=== PATIENT | male | born 1960 | race Caucasian/White ===

== ENCOUNTER 2023-10-23 02:04 | Emergency (ER) | payer MEDICARE ==
[~2023-10-23] VITALS: Ht 193 cm; Wt 97.5 kg
[2023-10-23] MEDS ORDERED: DIVA-78 PO (02:41)
[2023-10-23] MEDS ORDERED: ACETAMINOPHEN ES 500 MG TABLET ONE (02:41)
[2023-10-23] MEDS ORDERED: ALBU8.5H8 IH (02:41)
[2023-10-23] MEDS ORDERED: NAPR-1164 PO (02:41)
[2023-10-23] MEDS ORDERED: OXYMETAZOLINE NASAL 0.05% 15 ML SPRAY NS ONE (02:42)
[2023-10-23] MEDS ORDERED: HYDROCODONE/APAP 5-325MG TABLET ONE (02:42)
[2023-10-23] MEDS ORDERED: DIVALPROEX 500 MG TABLET.DR PO ONE (02:46)
[2023-10-23] MEDS: DIVALPROEX 500 MG TABLET.DR PO ONE (02:52)
[2023-10-23] MEDS: HYDROCODONE/APAP 5-325MG TABLET PO ONE (02:52)
[2023-10-23] MEDS: OXYMETAZOLINE NASAL 0.05% 15 ML SPRAY NS ONE (02:52)
[2023-10-23] MEDS: ACETAMINOPHEN ES 500 MG TABLET PO ONE (02:52)
[2023-10-23 05:29] VITALS: O2SAT 96
== END 2023-10-23 10:35 | disposition home or self-care (01) ==
LOC: ER 02:15
DX: S09.8XXA Other specified injuries of head, initial encounter (principal); J44.9 Chronic obstructive pulmonary disease, unspecified; F17.210 Nicotine dependence, cigarettes, uncomplicated; F31.9 Bipolar disorder, unspecified; Z79.899 Other long term (current) drug therapy; Z60.2 Problems related to living alone; Y08.89XA Assault by other specified means, initial encounter; Y93.89 Activity, other specified; Y92.89 Other specified places as the place of occurrence of the external cause; Y99.8 Other external cause status
CPT/HCPCS: 70450; A4606; A4663; A9150

== ENCOUNTER 2023-11-13 23:05 | Emergency (ER) | payer MEDICARE ==
[~2023-11-13] VITALS: Ht 193 cm; Wt 70.3 kg
[~2023-11-13 23:05] MED LIST: ALBU8.5H8 IH; DIVA-78 PO; NAPR-1164 PO
[2023-11-13] MEDS: IV NORMAL SALINE 1000 ML BAG IV ONE (23:30)
[2023-11-13 23:41] LABS: BASOPHILS # (AUTO) 0.1 K/UL (0.0-0.2); BASOPHILS % (AUTO) 1.5 % (0.0-2.0); EOSINOPHILS # (AUTO) 0.1 K/uL (0.0-0.7); EOSINOPHILS % (AUTO) 0.8 % (0.0-7.0); HEMATOCRIT 33.7 % (36.7-47.1); HEMOGLOBIN 11.1 g/dL (12.5-16.3); LYMPHOCYTES % (AUTO) 22.9 % (20.5-51.5); MEAN CORPUSCULAR HEMOGLOBIN 29.2 uug (23.8-33.4); MEAN CORPUSCULAR HGB CONC 33 g/dL (32.5-36.3); MEAN CORPUSCULAR VOLUME 88.5 fL (73.0-96.2); MONOCYTES # (AUTO) 0.6 K/uL (0.1-1.30); MONOCYTES % (AUTO) 6.6 % (0.0-11.0); NEUTROPHILS # (AUTO) 5.8 K/uL (1.8-8.9); NEUTROPHILS % (AUTO) 68.2 % (38.5-71.5); PLATELET COUNT (AUTO) 365 K/uL (152-348); RED BLOOD CELL COUNT(AUTO) 3.81 MIL/uL (4.06-5.63); RED CELL DISTRIBUTION WIDTH 14.2 % (12.1-16.2); WHITE BLOOD COUNT (AUTO) 8.6 K/uL (3.6-10.2)
[2023-11-13 23:47] LABS: DIFFERENTIAL COMMENT 1
[2023-11-13 23:51] LABS: CALCIUM 8.9 mg/dL (8.5-10.1); CARBON DIOXIDE 26 mmol/L (21-32); CHLORIDE 105 mmol/L (98-107); CREATININE 0.9 mg/dL (0.6-1.3); GLUCOSE 111 mg/dL (74-106); POTASSIUM 3.6 mmol/L (3.5-5.1); SODIUM SERUM 143 mmol/L (136-145); UREA NITROGEN, BLOOD 16 mg/dL (7-18)
[2023-11-13 23:52] LABS: AMMONIA < 10 umol/L (11-32)
[2023-11-13 23:57] LABS: ALANINE AMINOTRANSFERASE 20 U/L (16-63); ALBUMIN 3.4 g/dL (3.4-5.0); ALKALINE PHOSPHATASE 86 U/L (50-136); ASPARTATE AMINOTRANSFERASE 11 U/L (15-37); BILIRUBIN,DIRECT 0.1 mg/dL (0.0-0.2); BILIRUBIN,TOTAL 0.3 mg/dL (0.2-1.0); LIPASE 28 U/L (16-77); TOTAL PROTEIN, SERUM 7.4 g/dL (6.4-8.2)
[2023-11-14] MEDS: IV LACTATED RINGERS SOLUTION 1,000 ML IV ONE (01:48)
[2023-11-14] MEDS ORDERED: LOPE2CAP40 PO (05:48)
[2023-11-14] MEDS ORDERED: DICY10CA13 PO (05:52)
[2023-11-14 06:55] VITALS: BP 123/69; TEMP 98.8; O2SAT 99
== END 2023-11-14 06:56 | disposition home or self-care (01) ==
LOC: ER 23:06
DX: E86.0 Dehydration (principal); R19.7 Diarrhea, unspecified; J44.9 Chronic obstructive pulmonary disease, unspecified; F31.9 Bipolar disorder, unspecified; F17.200 Nicotine dependence, unspecified, uncomplicated; Z79.51 Long term (current) use of inhaled steroids; Z60.2 Problems related to living alone
CPT/HCPCS: 99284; 96360; 80076; 80048; 82140; 83690; 85025; 85730; 36415; 74176; 96361; J7120; J7040; A4606; A4663

== ENCOUNTER 2024-04-03 00:29 | Emergency (ER) | payer MEDICARE ==
[~2024-04-03] VITALS: Ht 193 cm; Wt 79.4 kg
[~2024-04-03 00:29] MED LIST changes: +DICY10CA13 PO; +LOPE2CAP40 PO
[2024-04-03] MEDS ORDERED: ALBUTEROL SULFATE 2.5 MG/3 ML NEBU ONE (00:52)
[2024-04-03] MEDS ORDERED: IPRATROPIUM BROMIDE 0.5 MG/2.5 ML NEBU ONE (00:52)
[2024-04-03] MEDS ORDERED: CEFTRIAXONE 1 G VIAL ONE (00:53)
[2024-04-03] MEDS ORDERED: SULFAMETH/TRIMETH 800/160 MG TABLET ONE (00:54)
[2024-04-03] MEDS ORDERED: HYDROCODONE/APAP 10-325 MG TABLET ONE (00:54)
[2024-04-03] MEDS ORDERED: LIDOCAINE HCL 1% 20 ML VIAL ONE (00:54)
[2024-04-03] MEDS ORDERED: SULF1TAB48 PO (00:55)
[2024-04-03] MEDS ORDERED: HYDR-3980 PO (00:55)
[2024-04-03] MEDS ORDERED: DIVA-76 PO (00:55)
[2024-04-03] MEDS: ALBUTEROL SULFATE 2.5 MG/3 ML NEBU NEB ONE (00:58)
[2024-04-03] MEDS: IPRATROPIUM BROMIDE 0.5 MG/2.5 ML NEBU NEB ONE (00:58)
[2024-04-03] MEDS: CEFTRIAXONE 1 G VIAL IM ONE (00:59)
[2024-04-03] MEDS: HYDROCODONE/APAP 10-325 MG TABLET PO ONE (01:00)
[2024-04-03] MEDS: SULFAMETH/TRIMETH 800/160 MG TABLET PO ONE (01:00)
[2024-04-03 01:10] VITALS: O2SAT 98; O2SAT 99
[2024-04-03] MEDS ORDERED: DIVALPROEX 250 MG TABLET.DR PO ONE (01:33)
[2024-04-03] MEDS: VALPROIC ACID 250 MG CAPSULE PO SCH (01:40)
[2024-04-03 04:01] LABS: BASOPHILS % (AUTO) 0.6 % (0.0-2.0); EOSINOPHILS # (AUTO) 0.1 K/uL (0.0-0.7); EOSINOPHILS % (AUTO) 1.9 % (0.0-7.0); HEMATOCRIT 36.7 % (36.7-47.1); HEMOGLOBIN 12.3 g/dL (12.5-16.3); LYMPHOCYTES # (AUTO) 1.8 K/uL (0.8-4.8); LYMPHOCYTES % (AUTO) 25.3 % (20.5-51.5); MEAN CORPUSCULAR HEMOGLOBIN 27.8 uug (23.8-33.4); MEAN CORPUSCULAR HGB CONC 33 g/dL (32.5-36.3); MEAN CORPUSCULAR VOLUME 83.2 fL (73.0-96.2); MONOCYTES # (AUTO) 0.5 K/uL (0.1-1.30); NEUTROPHILS # (AUTO) 4.7 K/uL (1.8-8.9); NEUTROPHILS % (AUTO) 65.2 % (38.5-71.5); PLATELET COUNT (AUTO) 290 K/uL (152-348); RED BLOOD CELL COUNT(AUTO) 4.42 MIL/uL (4.06-5.63); RED CELL DISTRIBUTION WIDTH 15.2 % (12.1-16.2); WHITE BLOOD COUNT (AUTO) 7.2 K/uL (3.6-10.2)
[2024-04-03] MEDS ORDERED: VANCOMYCIN IV 200 ML ONE (04:04)
[2024-04-03] MEDS: VANCOMYCIN IV 1,000 MG in IV DEXTROSE 5% 250 ML IV ONE (04:05)
[2024-04-03 05:01] LABS: ALBUMIN 3.6 g/dL (3.4-5.0); BILIRUBIN,TOTAL 0.2 mg/dL (0.2-1.0); CALCIUM 9.1 mg/dL (8.5-10.1); CREATININE 0.9 mg/dL (0.6-1.3); POTASSIUM 3.7 mmol/L (3.5-5.1); TOTAL PROTEIN, SERUM 7.9 g/dL (6.4-8.2)
[2024-04-03] MEDS ORDERED: IOHEXOL 300MG/ML 100 ML INFUS..BTL ONE (05:18)
[2024-04-03] MEDS ORDERED: SWABABLE VALVE TRANSFER SET EA MC ONE (05:20)
[2024-04-03 09:26] VITALS: BP 119/76; TEMP 98; O2SAT 97
== END 2024-04-03 09:27 | disposition home or self-care (01) ==
LOC: ER 00:37
DX: L03.031 Cellulitis of right toe (principal); J44.9 Chronic obstructive pulmonary disease, unspecified; F31.9 Bipolar disorder, unspecified; F17.210 Nicotine dependence, cigarettes, uncomplicated; F12.90 Cannabis use, unspecified, uncomplicated; Z79.899 Other long term (current) drug therapy; Z59.00 Homelessness unspecified; W01.0XXA Fall on same level from slipping, tripping and stumbling without subsequent striking against object, initial encounter; Y93.89 Activity, other specified; Y92.89 Other specified places as the place of occurrence of the external cause; Y99.8 Other external cause status
CPT/HCPCS: 99285; 96365; 73701; 96366; 99406; 80053; 85025; 85610; 87040 ×2; 36415; 73502; 73630; 94640; 96372; 72170; J0696; J3490; Q9967; J3370; A4606; A4663; J3590

== ENCOUNTER 2024-04-19 13:44 | Inpatient (IN) | payer MEDICARE ==
[~2024-04-19] VITALS: Ht 193 cm; Wt 78.9 kg
[~2024-04-19 13:44] MED LIST changes: +DIVA-76 PO; +HYDR-3980 PO; +SULF1TAB48 PO
[2024-04-19 14:46] LABS: BASOPHILS # (AUTO) 0.1 K/UL (0.0-0.2); BASOPHILS % (AUTO) 0.8 % (0.0-2.0); EOSINOPHILS # (AUTO) 0.2 K/uL (0.0-0.7); EOSINOPHILS % (AUTO) 3.4 % (0.0-7.0); HEMATOCRIT 32.3 % (36.7-47.1); HEMOGLOBIN 10.8 g/dL (12.5-16.3); LYMPHOCYTES # (AUTO) 1.6 K/uL (0.8-4.8); MEAN CORPUSCULAR HEMOGLOBIN 27.6 uug (23.8-33.4); MEAN CORPUSCULAR HGB CONC 33 g/dL (32.5-36.3); MONOCYTES # (AUTO) 0.6 K/uL (0.1-1.30); MONOCYTES % (AUTO) 8.7 % (0.0-11.0); NEUTROPHILS % (AUTO) 62.1 % (38.5-71.5); PLATELET COUNT (AUTO) 264 K/uL (152-348); RED CELL DISTRIBUTION WIDTH 15.6 % (12.1-16.2); WHITE BLOOD COUNT (AUTO) 6.4 K/uL (3.6-10.2)
[2024-04-19 14:52] LABS: DIFFERENTIAL COMMENT 1
[2024-04-19 15:01] LABS: CALCIUM 8.6 mg/dL (8.5-10.1); CARBON DIOXIDE 30 mmol/L (21-32); CHLORIDE 102 mmol/L (98-107); CREATININE 0.8 mg/dL (0.6-1.3); GLUCOSE 103 mg/dL (74-106); POTASSIUM 3.3 mmol/L (3.5-5.1); SODIUM SERUM 140 mmol/L (136-145); UREA NITROGEN, BLOOD 17 mg/dL (7-18)
[2024-04-19 15:05] LABS: ETHANOL < 3 MG/DL (0-10)
[2024-04-19 15:07] LABS: ALANINE AMINOTRANSFERASE 37 U/L (16-63); ALBUMIN 3.3 g/dL (3.4-5.0); ALKALINE PHOSPHATASE 112 U/L (50-136); ASPARTATE AMINOTRANSFERASE 21 U/L (15-37); BILIRUBIN,DIRECT 0.1 mg/dL (0.0-0.2); BILIRUBIN,TOTAL 0.3 mg/dL (0.2-1.0)
[2024-04-19 15:19] LABS: ACETAMINOPHEN < 2.0 ug/mL (10-30)
[2024-04-19] MEDS ORDERED: POTASSIUM BICARBONATE/CIT AC 25 MEQ TABLET.EFF ONE (15:27)
[2024-04-19 15:30] LABS: *BILIRUBIN,URIN NEGATIVE (NEGATIVE); *BLOOD, URINE 1+ (NEGATIVE); *CLARITY,URINE CLEAR (CLEAR); *COLOR,URINE YELLOW (YELLOW); *KETONES,URINE NEGATIVE (NEGATIVE); *PROTEIN,URINE NEGATIVE (NEGATIVE); *UROBILINOGEN,URINE 0.2 E.U./dl (NORMAL); LEUKOCYTE ESTERASE ,URINE NEGATIVE (NEGATIVE); NITRITE, URINE NEGATIVE (NEGATIVE); PH,URINE 5.5 (5.0-8.0); UGLUCOSE NEGATIVE (NEGATIVE)
[2024-04-19] MEDS: POTASSIUM BICARBONATE/CIT AC 25 MEQ TABLET.EFF PO ONE (15:30)
[2024-04-19 15:50] LABS: *AMPHETAMINE, URINE NEGATIVE (NEGATIVE); *BARBITURATE, URINE NEGATIVE (NEGATIVE); *BENZODIAZEPINE, URINE NEGATIVE (NEGATIVE); *CANNABINOID, URINE POSITIVE (NEGATIVE); *COCCAINE, URINE NEGATIVE (NEGATIVE); *OPIATE, URINE NEGATIVE (NEGATIVE); *PHENCYCLIDINE SCREEN,URINE NEGATIVE (NEGATIVE)
[2024-04-19 15:52] LABS: BACTERIA,URINE FEW /HPF (NONE SEEN); RBC,URINE 20-50 /HPF (0-3); SQUAMOUS EPITHELIAL CELL,UR FEW /HPF (NONE SEEN); WBC,URINE 0-3 /HPF (0-3)
[2024-04-19 16:03] LABS: FENTANYL, URINE NEGATIVE (NEGATIVE)
[2024-04-19] MEDS ORDERED: diphenhydrAMINE 50 MG/1 ML VIAL ONE (18:44)
[2024-04-19] MEDS ORDERED: HALOPERIDOL LACTATE 5 MG/1 ML VIAL ONE (18:44)
[2024-04-19] MEDS ORDERED: LORAZEPAM 2 MG/1 ML VIAL ONE (18:45)
[2024-04-19] MEDS: HALOPERIDOL LACTATE 5 MG/1 ML VIAL IM ONE (18:59)
[2024-04-19] MEDS: diphenhydrAMINE 50 MG/1 ML VIAL IM ONE (18:59)
[2024-04-19] MEDS: LORAZEPAM 2 MG/1 ML VIAL IM ONE (18:59)
[2024-04-19] MEDS ORDERED: LORAZEPAM 1 MG TABLET PO PRN ×2 (22:30)
[2024-04-19] MEDS ORDERED: MAGNESIUM HYDROXIDE 30 ML LIQUID UDC PO PRN (22:30)
[2024-04-19] MEDS ORDERED: ZOLPIDEM 5 MG TABLET PO PRN ×2 (22:30)
[2024-04-19] MEDS ORDERED: MAG HYDROX/AL HYDROX/SIMETH 30 ML LIQUID UDC PO PRN (22:30)
[2024-04-19 22:50] VITALS: BP 135/61; TEMP 96.6; O2SAT 95
[2024-04-19] MEDS: BLOOD SUGAR DIAGNOSTIC 1 EACH STRIP VI ONE (23:11)
[2024-04-20] MEDS ORDERED: ALBUTEROL SULFATE 8 GM HFA.AER.AD IH PRN (00:15)
[2024-04-20 08:04] VITALS: BP 142/67; TEMP 98; O2SAT 100
[2024-04-20] MEDS: OLANZAPINE 2.5 MG TABLET PO SCH (09:00)
[2024-04-20] MEDS: NICOTINE 21 MG/24HR PATCH TD SCH (09:00)
[2024-04-20] MEDS ORDERED: DIVALPROEX 500 MG TABLET.DR PO SCH (09:00)
[2024-04-20] MEDS: LORAZEPAM 1 MG TABLET PO PRN (23:43)
[2024-04-20] MEDS: ACETAMINOPHEN 325 MG TABLET PO PRN (23:44)
[2024-04-21] MEDS: OLANZAPINE 10 MG VIAL IM ONE ×2 (07:21→14:24)
[2024-04-21] MEDS: DIVALPROEX 500 MG TABLET.DR PO SCH (09:00)
[2024-04-22 07:30] VITALS: BP 114/75; TEMP 98; O2SAT 100
[2024-04-22] MEDS: ENSURE ENLIVE (VAN) 240 ML LIQUID PO SCH (08:08)
[2024-04-22 15:32] VITALS: BP 122/69; TEMP 98; O2SAT 99
[2024-04-23 07:58] VITALS: BP 115/71; TEMP 98; O2SAT 98
[2024-04-23] MEDS ORDERED: OLANZAPINE 2.5 MG TABLET PO SCH (09:00)
[2024-04-23] MEDS: OLANZAPINE 10 MG VIAL IM ONE (14:55)
[2024-04-23 15:05] VITALS: BP 114/80; TEMP 98; O2SAT 98
[2024-04-23] MEDS: OLANZAPINE 5 MG TABLET PO SCH (18:01)
[2024-04-23 20:00] VITALS: BP 96/63; TEMP 97.2; O2SAT 99
[2024-04-24 08:14] VITALS: BP 117/60; TEMP 98.2; O2SAT 99
[2024-04-24] MEDS: OLANZAPINE 10 MG VIAL IM ONE (10:35)
[2024-04-24 16:06] VITALS: BP 135/68; TEMP 98; O2SAT 99
[2024-04-24 20:00] VITALS: BP 112/71; TEMP 97.4; O2SAT 97
[2024-04-25 08:09] VITALS: BP 113/67; TEMP 97.7; O2SAT 100
[2024-04-25] MEDS: OLANZAPINE 5 MG TABLET PO SCH (08:40)
[2024-04-25 16:12] VITALS: BP 107/68; TEMP 98; O2SAT 100
[2024-04-25 20:34] VITALS: BP 123/84; TEMP 98.1; O2SAT 20
[2024-04-26 08:19] VITALS: BP 104/63; TEMP 98; O2SAT 18
[2024-04-26 13:43] VITALS: O2SAT 97
[2024-04-26] MEDS: ALBUTEROL SULFATE 2.5 MG/3 ML NEBU NEB PRN (13:43)
[2024-04-26 13:53] VITALS: O2SAT 100; O2SAT 97
[2024-04-26 16:12] VITALS: BP 112/58; TEMP 98.6; O2SAT 100
[2024-04-26 20:00] VITALS: BP 94/67; TEMP 97.9; O2SAT 99
[2024-04-26] MEDS: DIVALPROEX 500 MG TABLET.DR PO SCH (20:33)
[2024-04-27 08:12] VITALS: BP 118/63; TEMP 97.8; O2SAT 100
[2024-04-27 08:55] LABS: BASOPHILS # (AUTO) 0.1 K/UL (0.0-0.2); BASOPHILS % (AUTO) 0.9 % (0.0-2.0); EOSINOPHILS # (AUTO) 0.2 K/uL (0.0-0.7); EOSINOPHILS % (AUTO) 2.3 % (0.0-7.0); HEMATOCRIT 41.1 % (36.7-47.1); HEMOGLOBIN 13.7 g/dL (12.5-16.3); LYMPHOCYTES # (AUTO) 1.3 K/uL (0.8-4.8); LYMPHOCYTES % (AUTO) 18.3 % (20.5-51.5); MEAN CORPUSCULAR HEMOGLOBIN 27.8 uug (23.8-33.4); MEAN CORPUSCULAR HGB CONC 33 g/dL (32.5-36.3); MEAN CORPUSCULAR VOLUME 83.4 fL (73.0-96.2); MONOCYTES # (AUTO) 0.5 K/uL (0.1-1.30); MONOCYTES % (AUTO) 7.8 % (0.0-11.0); NEUTROPHILS % (AUTO) 70.7 % (38.5-71.5); PLATELET COUNT (AUTO) 254 K/uL (152-348); RED BLOOD CELL COUNT(AUTO) 4.93 MIL/uL (4.06-5.63); RED CELL DISTRIBUTION WIDTH 15.3 % (12.1-16.2); WHITE BLOOD COUNT (AUTO) 7.1 K/uL (3.6-10.2)
[2024-04-27 09:05] LABS: CALCIUM 9.2 mg/dL (8.5-10.1); CREATININE 0.8 mg/dL (0.6-1.3); MAGNESIUM 2.2 mg/dL (1.8-2.4); PHOSPHOROUS 4.3 mg/dL (2.5-4.9); POTASSIUM 4.1 mmol/L (3.5-5.1)
[2024-04-27 09:12] LABS: DIFFERENTIAL COMMENT 1
[2024-04-27 09:41] LABS: THYROID STIMULATING HORMONE 3.947 mIU/mL (0.358-3.740)
[2024-04-27 12:25] VITALS: O2SAT 98
[2024-04-27 12:35] VITALS: O2SAT 100
[2024-04-27 16:12] VITALS: BP 111/57; TEMP 98.2; O2SAT 100
[2024-04-27] MEDS: VALPROIC ACID 250 MG/5 ML LIQUID UDC PO SCH (16:21)
[2024-04-28 08:20] VITALS: BP 126/73; TEMP 98.6; O2SAT 100
[2024-04-28 12:21] VITALS: O2SAT 98
[2024-04-28 12:31] VITALS: O2SAT 100
== END 2024-04-28 14:45 | disposition home or self-care (01) | DRG 885 ==
LOC: ER 13:44 → GPS 22:22
PROVIDERS: ADMIT Psychiatry & Neurology Psychiatry; ATTEND Internal Medicine
DX: F31.64 Bipolar disorder, current episode mixed, severe, with psychotic features (principal); F12.10 Cannabis abuse, uncomplicated; F17.210 Nicotine dependence, cigarettes, uncomplicated; E87.6 Hypokalemia; J44.9 Chronic obstructive pulmonary disease, unspecified; M62.81 Muscle weakness (generalized); Z91.199 Patient's noncompliance with other medical treatment and regimen due to unspecified reason; Z91.81 History of falling; Z79.899 Other long term (current) drug therapy
CPT/HCPCS: 36415; 73660; 80164; 83550; 83735; 84100; 84443; 85025; 94640; 94664; 94760; C1758; G0480; J1200; J1630; J2060; J2358; J3535

== ENCOUNTER 2024-05-08 00:28 | Emergency (ER) | payer MEDICARE ==
[~2024-05-08] VITALS: Ht 193 cm; Wt 79.4 kg
[~2024-05-08 00:28] MED LIST changes: -DICY10CA13 PO; -DIVA-76 PO; -HYDR-3980 PO; -LOPE2CAP40 PO; -NAPR-1164 PO; -SULF1TAB48 PO
[2024-05-08] MEDS: ALBUTEROL SULFATE 2.5 MG/3 ML NEBU NEB ONE (03:52)
[2024-05-08] MEDS: IPRATROPIUM BROMIDE 0.5 MG/2.5 ML NEBU NEB ONE (03:52)
[2024-05-08] MEDS ORDERED: ALBUTEROL SULFATE 2.5 MG/3 ML NEBU ONE (03:55)
[2024-05-08] MEDS ORDERED: IPRATROPIUM BROMIDE 0.5 MG/2.5 ML NEBU ONE (03:56)
[2024-05-08 04:00] VITALS: O2SAT 98
[2024-05-08 04:11] VITALS: O2SAT 99
[2024-05-08 04:15] VITALS: O2SAT 99
[2024-05-08] MEDS ORDERED: IPRA12.9 INH (04:41)
[2024-05-08] MEDS ORDERED: NAPR-1009 PO (04:41)
[2024-05-08] MEDS ORDERED: AZIT250T13 PO (04:41)
[2024-05-08] MEDS ORDERED: ALBU18HF2 INH (04:41)
[2024-05-08 06:30] VITALS: BP 144/76; TEMP 98; O2SAT 99
== END 2024-05-08 05:55 | disposition home or self-care (01) ==
LOC: ER 00:36
DX: J44.0 Chronic obstructive pulmonary disease with (acute) lower respiratory infection (principal); J20.9 Acute bronchitis, unspecified; G89.29 Other chronic pain; F17.210 Nicotine dependence, cigarettes, uncomplicated; F12.90 Cannabis use, unspecified, uncomplicated; F91.9 Conduct disorder, unspecified; R03.0 Elevated blood-pressure reading, without diagnosis of hypertension; F31.9 Bipolar disorder, unspecified; Z60.2 Problems related to living alone; Z76.0 Encounter for issue of repeat prescription
CPT/HCPCS: 71045; A4606; A4663; J3590

== ENCOUNTER 2024-05-10 01:09 | Emergency (ER) | payer MEDICARE ==
[~2024-05-10 01:09] MED LIST changes: +ALBU18HF2 INH; +AZIT250T13 PO; +IPRA12.9 INH; +NAPR-1009 PO
== END 2024-05-10 02:19 | disposition left against medical advice (07) ==
LOC: ER 01:11
DX: R52 Pain, unspecified (principal); Z53.21 Procedure and treatment not carried out due to patient leaving prior to being seen by health care provider

== ENCOUNTER → 2024-11-05 | Emergency (ER) | payer MEDICARE ==
[~2024-11-05] VITALS: Ht 193 cm; Wt 79.4 kg
[~2024-11-05] MED LIST changes: +HYDR-3980 PO; +HYDROCODONE/APAP 10-325 MG TABLET ONE
[2024-11-05] MEDS: HYDROCODONE/APAP 10-325 MG TABLET PO ONE (03:59)
[2024-11-05 05:33] VITALS: BP 127/53; TEMP 98; O2SAT 98
== END | disposition home or self-care (01) ==
LOC: ER 03:32
DX: J44.9 Chronic obstructive pulmonary disease, unspecified (principal); M79.674 Pain in right toe(s); F12.90 Cannabis use, unspecified, uncomplicated; F17.210 Nicotine dependence, cigarettes, uncomplicated; F31.9 Bipolar disorder, unspecified; Z59.00 Homelessness unspecified
CPT/HCPCS: 73660; A4606; A4663

== ENCOUNTER 2025-04-19 23:45 | Emergency (ER) | payer MEDICARE, MEDICAID ==
[~2025-04-19] VITALS: Ht 193 cm; Wt 79.4 kg
[~2025-04-19 23:45] MED LIST changes: +DIVA-134 PO; -DIVA-78 PO; -HYDROCODONE/APAP 10-325 MG TABLET ONE; -NAPR-1009 PO; +NAPR-1194 PO
[2025-04-19 23:58] VITALS: BP 131/109
[2025-04-20] MEDS: LIDOCAINE HCL 1% 20 ML VIAL TP ONE (01:18)
[2025-04-20] MEDS ORDERED: NEOMY/BACITRA/POLYMYXIN B OINT UD PACKET TP ONE (01:53)
[2025-04-20] MEDS: NEOMY/BACITRA/POLYMYXIN B OINT UD PACKET TP ONE (02:01)
[2025-04-20] MEDS ORDERED: CEPH500C2 PO (02:02)
[2025-04-20] MEDS ORDERED: NEOM1OIN19 TP (02:02)
[2025-04-20] MEDS: ACETAMINOPHEN 500 MG TABLET PO ONE (02:08)
[2025-04-20 02:12] VITALS: BP 125/89; O2SAT 98
== END 2025-04-20 02:25 | disposition home or self-care (01) ==
LOC: ER 23:49
DX: S06.0X0A Concussion without loss of consciousness, initial encounter (principal); S01.01XA Laceration without foreign body of scalp, initial encounter; S02.2XXD Fracture of nasal bones, subsequent encounter for fracture with routine healing; J44.9 Chronic obstructive pulmonary disease, unspecified; F17.210 Nicotine dependence, cigarettes, uncomplicated; Z59.00 Homelessness unspecified; Y04.0XXA Assault by unarmed brawl or fight, initial encounter; Y93.89 Activity, other specified; Y92.89 Other specified places as the place of occurrence of the external cause; Y99.9 Unspecified external cause status
CPT/HCPCS: 70450; 70486; A4606; A4663